=== PATIENT | female | born 1975 | race Two or more races ===

== ENCOUNTER 2023-11-21 17:07 | Emergency (ER) | payer OTHER ==
[~2023-11-21] VITALS: Ht 157.5 cm; Wt 86.2 kg
[2023-11-21] MEDS ORDERED: ACETAMINOPHEN 500 MG GEL..CAP PO ONE ×3 (17:31→19:23)
[2023-11-21 19:46] LABS: HEMATOCRIT 34.7 % (36.0-45.00); HEMOGLOBIN 11.7 g/dL (12.0-15.00); MEAN CELL VOLUME 93.4 fL (80.00-100.00); MEAN CORPUSCULAR HEMOGLOBIN 31.6 pg (27.00-32.0); MEAN CORPUSCULAR HGB CONC 33.8 g/dl (32.0-36.0); RED BLOOD COUNT 3.71 M/uL (4.00-6.00); RED CELL DISTRIBUTION WIDTH 12.4 % (11.5-14.5)
[2023-11-21 19:50] LABS: PLATELET COUNT 97 K/uL (150-450)
[2023-11-21] MEDS ORDERED: DEXAMETHASONE SODIUM PHOSPHATE 4 MG/ML VIAL ONE (20:39)
[2023-11-21] MEDS ORDERED: DEXAMETHASONE SODIUM PHOSPHATE 4 MG/ML VIAL IM ONE (20:45)
== END 2023-11-21 21:44 | disposition home or self-care (01) ==
LOC: ER 17:08
PROVIDERS: Nurse Practitioner Family
DX: A90 Dengue fever [classical dengue] (principal); R50.9 Fever, unspecified; Z20.822 Contact with and (suspected) exposure to COVID-19